=== PATIENT | female | born 1990 | race Two or more races ===

== ENCOUNTER 2017-06-10 15:03 | Outpatient (CLI) | payer MEDICAID ==
[2017-06-10 15:52] LABS: APPEARANCE,URINE SLIGHTLY-CLOUDY; BILIRUBIN,URINE NEGATIVE (NEGATIVE); GLUCOSE, URINE NEGATIVE (NEGATIVE); KETONES,URINE NEGATIVE (NEGATIVE); LEUKOCYTE ESTERASE,URINE NEGATIVE (NEGATIVE); NITRITE,URINE NEGATIVE (NEGATIVE); PROTEIN,URINE NEGATIVE (NEGATIVE); URINE SPECIFIC GRAVITY 1.011; UROBILINOGEN,URINE NEGATIVE mg/dL (<2.0)
[2017-06-10 16:16] LABS: URINE BARBITURATES SCREEN NEGATIVE; URINE METHADONE SCREEN NEGATIVE; URINE OPIATES LOW NEGATIVE; URINE PHENCYCLIDINE SCREEN NEGATIVE
== END 2017-06-10 16:13 | disposition home or self-care (01) ==
LOC: LC 15:03
PROVIDERS: ATTEND Specialist
DX: O47.1 False labor at or after 37 completed weeks of gestation (principal); Z3A.39 39 weeks gestation of pregnancy
CPT/HCPCS: 59025; 80307; 81005

== ENCOUNTER 2017-06-11 03:49 | Inpatient (IN) | payer MEDICAID ==
[2017-06-11 04:41] LABS: APPEARANCE,URINE SLIGHTLY-CLOUDY; BILIRUBIN,URINE NEGATIVE (NEGATIVE); GLUCOSE, URINE NEGATIVE (NEGATIVE); KETONES,URINE NEGATIVE (NEGATIVE); LEUKOCYTE ESTERASE,URINE TRACE (NEGATIVE); NITRITE,URINE NEGATIVE (NEGATIVE); PROTEIN,URINE NEGATIVE (NEGATIVE); URINE SPECIFIC GRAVITY 1.012; UROBILINOGEN,URINE NEGATIVE mg/dL (<2.0)
[2017-06-11 05:01] LABS: URINE BARBITURATES SCREEN NEGATIVE; URINE METHADONE SCREEN NEGATIVE; URINE OPIATES LOW NEGATIVE; URINE PHENCYCLIDINE SCREEN NEGATIVE
[2017-06-11] MEDS ORDERED: RINGERS SOLUTION,LACTATED 1,000 ML IV ONE (05:50)
[2017-06-11] MEDS ORDERED: RINGERS SOLUTION,LACTATED 1,000 ML IV PRN (05:50)
[2017-06-11] MEDS ORDERED: PENICILLIN G-K 5 MILLION UNIT VIAL ONE ×2 (05:55→10:54)
[2017-06-11] MEDS ORDERED: PENICILLIN G POTASSIUM 5,000,000 UNIT in DEXTROSE 5%-WATER 100 ML IV ONE (06:00)
[2017-06-11 06:23] LABS: ABSOLUTE EOSINOPHILS # (AUTO) 0.1 10^3/uL (0.0-0.6); ABSOLUTE LYMPHOCYTES (AUTO) 1.3 10^3/uL (0.5-4.7); ABSOLUTE MONOCYTES (AUTO) 0.6 10^3/uL (0.1-1.4); ABSOLUTE NEUT (AUTO) 8.6 10^3/uL (1.7-8.2); BASOPHILS % (AUTO) 0.3 % (0-2); EOSINOPHILS % (AUTO) 0.8 % (0-6); HEMATOCRIT 29.6 % (36.0-47.0); HEMOGLOBIN 9.4 g/dL (12.0-15.5); HGB HCT DIFFERENCE -1.4; LYMPHOCYTES % (AUTO) 12.6 % (13-45); MEAN CORPUSCULAR HEMOGLOBIN 28.5 pg (27.0-33.4); MEAN CORPUSCULAR HGB CONC 31.8 g/dL (32.0-36.0); MEAN CORPUSCULAR VOLUME 90 fl (80-97); MONOCYTES % (AUTO) 5.2 % (3-13); RED CELL DISTRIBUTION WIDTH 15.5 % (11.5-14.0); SEGMENTED NEUTROPHILS % (AUTO) 81.1 % (42-78); WHITE BLOOD COUNT 10.6 10^3/uL (4.0-10.5)
[2017-06-11] MEDS ORDERED: MISOPROSTOL 0.2 MG TABLET ONE (06:45)
[2017-06-11] MEDS ORDERED: OXYTOCIN/NORMAL SALINE 20 UNIT/1,000 ML RTUINJ ONE (06:45)
[2017-06-11] MEDS ORDERED: LIDOCAINE 1% INJ-PF (10 MG/ML) 30 ML SDV ONE (06:45)
[2017-06-11] MEDS ORDERED: PHENYLEPHRINE HCL INJ/PF 10 MG/1 ML SDV ONE (07:22)
[2017-06-11] MEDS ORDERED: EPHEDRINE SULFATE INJ 50 MG/1 ML AMPULE ONE (07:22)
[2017-06-11] MEDS ORDERED: FENTANYL CITRATE INJ/PF 100 MCG/2 ML AMPUL ONE (07:22)
[2017-06-11] MEDS ORDERED: FENTANYL/BUPIVACAINE/NS/PF 200 MCG/100 ML RTUINJ EPI ONE (07:23)
[2017-06-11] MEDS ORDERED: BUPIVACAINE HCL 0.25 % INJ/PF (2.5 MG/1 ML) 30 ML VIAL ONE (07:23)
--- NOTE | 2017-06-11 08:47 | L&D Progress Notes ---
PROGRESS NOTES Datetime Report Generated by CPN: 06/11/2017 08:47 PROGRESS NOTE Impression: Normal Progression of Labor Plan: Continue Present Management Vital Signs : Reviewed; Within Normal Limits Comment: Cat 1 , irregular uc's, comfortable with epidural, hsb at BS, anticipate SIGNATURE SIGNATURE: [id number] Assignment: Дмитрий Pascual DO Signature: with User ID: [email or web address] : with User ID: [email or web address]
[2017-06-11] MEDS ORDERED: PENICILLIN G POTASSIUM 2,500,000 UNIT in DEXTROSE 5%-WATER 50 ML IV SCH (10:00)
[2017-06-11] MEDS ORDERED: MISOPROSTOL 0.2 MG TABLET PR ONE (14:59)
[2017-06-11] MEDS ORDERED: GLYCERIN/WITCH HAZEL LEAF 1 EACH MED..PAD TP PRN (14:59)
[2017-06-11] MEDS ORDERED: MEASLES,MUMPS&RUBELLA VACC/PF 0.5 ML VIAL SUBCUT PRN (14:59)
[2017-06-11] MEDS ORDERED: DIBUCAINE 1% OINTMENT 28 GM TP PRN (14:59)
[2017-06-11] MEDS ORDERED: PROMETHAZINE HCL 25 MG SUPP.RECT PR PRN (14:59)
[2017-06-11] MEDS ORDERED: PROMETHAZINE HCL INJ 25 MG/1 ML VIAL IV PRN (14:59)
[2017-06-11] MEDS ORDERED: PSEUDOEPHEDRINE HCL 30 MG TABLET PO PRN (14:59)
[2017-06-11] MEDS ORDERED: NA PHOS,M-B/NA PHOS,DI-BA (ADULT) 133 ML ENEMA PR PRN (14:59)
[2017-06-11] MEDS ORDERED: DIPHENHYDRAMINE HCL 25 MG CAPSULE PO PRN (14:59)
[2017-06-11] MEDS ORDERED: PROMETHAZINE HCL 25 MG TABLET PO PRN (14:59)
[2017-06-11] MEDS ORDERED: MAGNESIUM HYDROXIDE SUSP 30 ML UDCUP PO PRN (14:59)
[2017-06-11] MEDS ORDERED: BENZOCAINE/MENTHOL AEROSOL SPRAY 56 ML TOP PRN (14:59)
[2017-06-11] MEDS ORDERED: DIPH/PERTUSS(ACELL)/TETANUS VAC/PF 0.5 ML SYR (>=10YO) IM PRN (14:59)
[2017-06-11] MEDS ORDERED: ACETAMINOPHEN WITH CODEINE #3 TABLET PO PRN (14:59)
[2017-06-11] MEDS ORDERED: OXYTOCIN/NORMAL SALINE 20 UNIT/1,000 ML RTUINJ IV PRN (14:59)
[2017-06-11] MEDS ORDERED: ACETAMINOPHEN 650 MG SUPP.RECT PR PRN (14:59)
--- NOTE | 2017-06-11 16:33 | Delivery Summary ---
Del Sum A-C Datetime Report Generated by CPN: 06/11/2017 16:32 DELIVERY PERSONNEL DELIVERY PERSONNEL: [id number] Delivery Doctor:: Cecile Carcamo CNM Nurse Show Operations Supervisor Certified:: Cecile Carcamo CNM Labor and Delivery Nurse:: Cee Dexter RNadult daycare coordinator Nurse:: JAVON Sharif Student Observers:: Linda Charles [facility] Speaker Wirer/COLLAR STAY FUSER TENDER: [place] ST Alf Speaker Wirer/COLLAR STAY FUSER TENDER: Gely Otto MATERNAL INFORMATION Delivery Anesthesia: Epidural Medications After Delivery: Pitocin Bolus-Please Comment; Pitocin Drip 20 Units/1000ml NSS; Cytotec 600mcg Per Rectum/Vagina Estimated Blood Loss (ml): 200 Maternal Complications: None Provider Comments: viable male from OA to [place]ATT over intact perineum. placed on mothers abdomen, cord clamped and cut after 2 minutes, apgars 8/10, spont delivery of grossly nl placenta, 3 VC, EBL 200 cc Baby and mom remain in recovery in stable condition, FFFM, cytotec 600 mcg via rectum, massage, IV Pitocin LABOR SUMMARY EDC: 06/15/2017 00:00 No. Babies in Womb: 1 Attempted: No Labor Anesthesia: Epidural LABOR INFORMATION Reason for Induction: Not Applicable Onset of Labor: 06/11/2017 05:40 Complete Dilatation: 06/11/2017 14:30 Oxytocin: N/A Group B Beta Strep: positive Antibiotics # of Doses: 2 Antibiotics Time of Last Dose: Name of Antibiotic Given: Penicillin Steroids Given: None Reason Steroids Not Administered: Not Applicable MEMBRANES Membranes Rupture Method: Artificial Rupture of Membranes: 06/11/2017 12:02 Length of Rupture (hr): 2.70 Amniotic Fluid Color: Clear Amniotic Fluid Amount: Small Amniotic Fluid Odor: Normal STAGES OF LABOR Stage 1 hr: 8 Stage 1 min: 50 Stage 2 hr: 0 Stage 2 min: 14 Stage 3 hr: 0 Stage 3 min: 5 Total Time in Labor hr: 9 Total Time in Labor min: 9 VAGINAL DELIVERY Episiotomy: None Laceration Extension: N/A Laceration Type: None Laceration Repair: Not Applicable Sponge Count Correct: N/A Sharps Count Correct: N/A CSECTION DELIVERY Primary Indication: N/A Secondary Indication: N/A CSection Incidence: N/A Labor: N/A Elective: N/A CSection Incision: N/A BABY A INFORMATION Delivery Date/Time: 06/11/2017 14:44 Method of Delivery: Vaginal Born in Route : No : N/A Forceps: N/A Vacuum Extraction: N/A Shoulder Dystocia : No PRESENTATION/POSITION BABY A Presentation: Cephalic Cephalic Presentation: Vertex Vertex Position: Right Occipital Anterior Breech Presentation: N/A PLACENTA INFORMATION BABY A Placenta Delivery Time : 06/11/2017 14:49 Placenta Method of Delivery: Spontaneous Placenta Status: Delivered SCORES BABY A Heart Rate 1 min: >100 bpm Resp Effort 1 min: Good Cry Reflex Irritability 1 min: Cough or Sneeze or Pulls Away Muscle Tone 1 min: Active Motion Color 1 min: Blue/Pale Resuscitation Effort 1 min: Tactile Stimulation SCORE 1 MIN: 8 Heart Rate 5 min: >100 bpm Resp Effort 5 min: Good Cry Reflex Irritability 5 min: Cough or Sneeze or Pulls Away Muscle Tone 5 min: Active Motion Color 5 min: Completely [place] Resuscitation Effort 5 min: N/A SCORE 5 MIN: 10 INFORMATION BABY A Gestational Age at Delivery: 39.3 Gestational Status: Full Term- 39- 40.6 Weeks Infant Outcome : Liveborn Condition : Stable Sex: Male IDENTIFICATION BABY A Verification Date/Time: 06/11/2017 14:55 ID Band Number: [id number] Mother's Name Verified: Yes RN Verifying Infant: Yoko Camp [facility] Additional Verifying Personnel: D [facility] WEIGHT/LENGTH BABY A Infant Birthweight (gm): 3210 Infant Weight (lb): 7 Weight (oz): 1 Infant Length (in): 19.00 Infant Length (cm): 48.26 CORD INFORMATION BABY A No. Cord Vessels: 3 Nuchal Cord : N/A Cord Blood Taken: Yes-For Storage (Mom's Blood type +) Suction: None ASSESSMENT BABY A Infant Complications: Multiple Variable Decels Physical Findings at Delivery: Puncture Wound from Scalp Electrode Respirations: Appears Normal Skin to Skin: Yes Concrete Paving Supervisor/ALS Called : No Care By: D Ivy [facility] Transferred To: Remains with Mother BABY B INFORMATION : N/A
--- NOTE | 2017-06-11 17:03 | Admission Physical ---
Datetime Report Generated by CPN: 06/11/2017 17:03 CURRENT ADMISSION Hx Assessment: The History has been Reviewed and is Current Chief Complaint: Uterine Contractions Admit Plan: Initiate Labor Protocol ALLERGIES Medication Allergies: No Medication Allergies: No Known Allergies (11/03/2012) Latex: No Latex Allergies OBSTETRICAL HISTORY EDC: 06/15/2017 00:00 : 3 Para: 2 Term: 2 : 0 SAB: 0 IAB: 0 Ectopic: 0 Livin Gestational Diabetes: No Rh Sensitization: No Incompetent Cervix: No LACEY: No Infertility: No ART Treatment: No Uterine Anomaly: No IUGR: No Hx Previous C/S: No Macrosomia: No Hx Loss/Stillborn: No PIH: No Hx : No Placenta Previa/Abruption: No Depression/PP Depression: No PTL/PROM: No Post Hemorrhage: No Current Procedures: Ultrasound Obstetrical History Comments: 2009 39 weeks 2010 41 weeks 2016 current SEE RECORDS Alcohol: No Marijuana : No Cocaine: No Other Illicit Drugs: No Cigarettes: Never Smoker. [id number] MEDICAL HISTORY Diabetes: No Blood Transfusion: No Pulmonary Disease (Asthma, TB): No Breast Disease: No Hypertension: No Glass Calibrator Surgery: No Heart Disease: No Hosp/Surgery: No Autoimmune Disorder: No Anesthetic Complications: No Kidney Disease: No Abnormal Pap Smear: No Neuro/Epilepsy: No Psychiatric Disorders: No Other Medical Diseases: No Hepatitis/Liver Disease: No Significant Family History: No Varicosities/Phlebitis: No Trauma/Violence : No Thyroid Dysfunction: No INFECTIOUS HISTORY Gonorrhea: No Genital Herpes: No Chlamydia: No Tuberculosis: No Syphilis: No HIV/AIDS Exposure: No Rash or Viral Illness: No HPV: No PHYSICAL EXAM General: Normal HEENT: Normal Neurologic: Normal Thyroid: Normal Heart: Normal Lungs: Normal Breast: Normal Back: Normal Abdomen: Normal Genitourinary Exam: Normal Extremities: Normal DTRs: Normal Pelvic Type: Adequate Physical Exam Comments: gbs + efw 7 pounds 5 oz on recent sono FETUS A EGA: 39.3 Monitoring: External US FHR Category: Category I Admit Comment: admit-gbs prophylaxis, supportive care PLANS FOR LABOR AND DELIVERY Labor and Delivery: None Pain Management: Epidural Feeding Preference: Formula Benefit of Breast Feed Discussed: Yes Circumcision: N/A INFORMED CONSENT Signature: with User ID: [email or web address]
[2017-06-11] MEDS: FERROUS SULFATE 325 MG TABLET PO SCH (17:36)
[2017-06-11] MEDS: DOCUSATE SODIUM 100 MG CAPSULE PO SCH (17:36)
[2017-06-11] MEDS: FAMOTIDINE 20 MG TABLET PO SCH (21:50)
[2017-06-11] MEDS: IBUPROFEN 800 MG TABLET PO SCH (21:50)
[2017-06-12] MEDS: ACETAMINOPHEN WITH CODEINE #3 TABLET PO PRN ×2 (01:55→23:12)
[2017-06-12] MEDS: IBUPROFEN 800 MG TABLET PO SCH ×3 (06:01→21:25)
[2017-06-12 07:43] LABS: HEMATOCRIT 32.4 % (36.0-47.0); HEMOGLOBIN 9.8 g/dL (12.0-15.5); MEAN CORPUSCULAR HEMOGLOBIN 26.6 pg (27.0-33.4); MEAN CORPUSCULAR HGB CONC 30.3 g/dL (32.0-36.0); MEAN CORPUSCULAR VOLUME 88 fl (80-97); RED CELL DISTRIBUTION WIDTH 15.9 % (11.5-14.0); WHITE BLOOD COUNT 15.3 10^3/uL (4.0-10.5)
[2017-06-12] MEDS: PRENATAL VITAMIN W-O CA NO5/FE FUMARATE/FA CAPSULE PO SCH (10:45)
[2017-06-12] MEDS: FAMOTIDINE 20 MG TABLET PO SCH ×2 (10:46→21:25)
[2017-06-12] MEDS: SENNOSIDES/DOCUSATE 8.6-50 MG 1 EACH TABLET PO SCH (10:46)
[2017-06-12] MEDS: FERROUS SULFATE 325 MG TABLET PO SCH ×2 (10:46→17:50)
[2017-06-12] MEDS: DOCUSATE SODIUM 100 MG CAPSULE PO SCH ×2 (10:46→17:50)
--- NOTE | 2017-06-12 13:07 | PDOC PROGRESS REPORT ---
Subjective-OB Subjective: Post Delivery Day: 1 26 year old. Denies any needs at this time, states lochia is stable, voiding without difficulty, pain well controlled. Physical Exam (OB) Vital Signs: Temp Pulse Resp BP Pulse Ox 97.8 F 86 16 95/64 L 100 06/12/17 07:42 06/12/17 07:42 06/12/17 07:42 06/12/17 07:42 06/12/17 07:42 Intake & Output 06/11/17 06/12/17 06/13/17 06:59 06:59 06:59 Intake Total 500 Balance 500 Weight 58.1 kg - PIH/Pre-Eclampsia DTR's: 2 + Clonus: Negative Headache: Absent Epigastric Pain: No Visual Changes: No - Lochia Lochia Amount: Scant < 10 ml Lochia Color: Rubra/Red - Abdomen Description: Tender, Soft Hernia Present: No Fundal Description: Firm, Midline Fundal Height: u/u - u/2 Objective-Diagnostic Laboratory: 06/12/17 07:27 06/12/17 07:27 WBC 15.3 H RBC 3.70 L Hgb 9.8 L Hct 32.4 L MCV 88 MCH 26.6 L MCHC 30.3 L RDW 15.9 H Plt Count 213 Assessment and Plan(PN) - Assessment and Plan (1) Anemia Qualifiers: Anemia type: unspecified type Qualified Code(s): D64.9 - Anemia, unspecified Is this a current diagnosis for this admission?: Yes Plan: ferrous sulfate (2) GBS (group B Streptococcus carrier), +RV culture, currently Is this a current diagnosis for this admission?: Yes Plan: n/a (3) Vaginal delivery Is this a current diagnosis for this admission?: Yes Plan: routine pp care - Time Spent with Patient Time with patient: Less than 15 minutes Critical Time spent with patient: Less than 15 minutes Medications reviewed and adjusted accordingly: Yes - Disposition Anticipated Discharge: Home Within: within 24 hours
[2017-06-13] MEDS: IBUPROFEN 800 MG TABLET PO SCH ×2 (06:35→14:36)
[2017-06-13 08:49] VITALS: BP 102/59
[2017-06-13] MEDS: DOCUSATE SODIUM 100 MG CAPSULE PO SCH (09:54)
[2017-06-13] MEDS: PRENATAL VITAMIN W-O CA NO5/FE FUMARATE/FA CAPSULE PO SCH (09:54)
[2017-06-13] MEDS: FAMOTIDINE 20 MG TABLET PO SCH (09:54)
[2017-06-13] MEDS: FERROUS SULFATE 325 MG TABLET PO SCH (09:55)
[2017-06-13] MEDS: SENNOSIDES/DOCUSATE 8.6-50 MG 1 EACH TABLET PO SCH (09:55)
--- NOTE | 2017-06-13 11:40 | PDOC PROGRESS REPORT ---
Subjective-OB Subjective: Post Delivery Day: 26 year old. Denies any needs at this time. Ready to go home. Physical Exam (OB) Vital Signs: Temp Pulse Resp BP Pulse Ox 98.1 F 90 20 102/59 L 99 06/13/17 08:06 06/13/17 08:06 06/13/17 08:06 06/13/17 07:49 06/13/17 08:06 Intake & Output 06/12/17 06/13/17 06/14/17 06:59 06:59 06:59 Intake Total 750 600 Balance 750 600 - PIH/Pre-Eclampsia DTR's: 2 + Clonus: Negative Headache: Absent Epigastric Pain: No Visual Changes: No - Lochia Lochia Amount: Scant < 10 ml Lochia Color: Rubra/Red - Abdomen Description: Tender, Soft Hernia Present: No Bowel Sounds: Normoactive Flatus Presence: Present Stool: Yes Fundal Description: Firm, Midline Fundal Height: u/u - u/2 Objective-Diagnostic Laboratory: 06/12/17 07:27 Assessment and Plan(PN) - Time Spent with Patient Medications reviewed and adjusted accordingly: Yes - Disposition Anticipated Discharge: Home
--- NOTE | 2017-06-13 11:46 | PDOC DISCHARGE SUMMARY ---
Final Diagnosis Discharge Date: 06/13/17 - Final Diagnosis (1) Anemia Is this a current diagnosis for this admission?: Yes (2) Former smoker Is this a current diagnosis for this admission?: Yes (3) GBS (group B Streptococcus carrier), +RV culture, currently Is this a current diagnosis for this admission?: Yes (4) Hx MRSA infection Is this a current diagnosis for this admission?: Yes (5) Vaginal delivery Is this a current diagnosis for this admission?: Yes Discharge Data - Discharge Medication Home Medications: Ferrous Sulfate [Feosol 325 mg Tablet] 325 mg PO BID #60 tablet 06/13/17 Gestational Age: 39.3 wks Reason(s) for Admission: Onset of Labor Procedures: Ultrasound Intrapartum Procedure(s): Spontaneous Vaginal Delivery - Data Baby 1 Male at 1 minute: 8 at 5 minutes: 10 Weight: 3.203 kg Home with Mother: Yes Complications: No - Diagnosis Test Laboratory: Temp Pulse Resp BP Pulse Ox 98.1 F 90 20 102/59 L 99 06/13/17 08:06 06/13/17 08:06 06/13/17 08:06 06/13/17 07:49 06/13/17 08:06 06/11/17 06/11/17 06/12/17 03:56 06:01 07:27 RBC 3.30 L 3.70 L Hgb 9.4 L 9.8 L Hct 29.6 L 32.4 L Urine Opiates Screen NEGATIVE - Discharge information/Instructions Discharge Activity: Activity As Tolerated, Balance Activity w/Rest, Pelvic Rest , Slowly Increase Activity, No tub bath Discharge Diet: Regular Disposition: HOME, SELF-CARE Follow up with: [facility] in: 4, Weeks
== END 2017-06-13 14:58 | disposition home or self-care (01) | DRG 775 ==
LOC: LC 03:49 → LR 05:56 → 2S 17:02
PROVIDERS: ADMIT Specialist; ATTEND Specialist
PROC: 10E0XZZ Delivery of Products of Conception, External Approach (ICD-10-PCS; principal; 2017-06-11)
PROC: 10907ZC Drainage of Amniotic Fluid, Therapeutic from Products of Conception, Via Natural or Artificial Opening (ICD-10-PCS; 2017-06-11)
PROC: 4A1HXCZ Monitoring of Products of Conception, Cardiac Rate, External Approach (ICD-10-PCS; 2017-06-11)
DX: O99.824 Streptococcus B carrier state complicating childbirth (principal); O99.02 Anemia complicating childbirth; D64.9 Anemia, unspecified; O76 Abnormality in fetal heart rate and rhythm complicating labor and delivery; Z86.14 Personal history of Methicillin resistant Staphylococcus aureus infection; Z3A.39 39 weeks gestation of pregnancy; Z87.891 Personal history of nicotine dependence
CPT/HCPCS: 36415; 80307; 81005; 85025; 85027; 86592; 86850; 86900; 86901; 94760; J2370; J2540; J2590; J3010; J3490

== ENCOUNTER 2017-08-21 15:57 | Emergency (ER) | payer MEDICAID ==
--- NOTE | 2017-08-21 16:45 | ER Document Report ---
ED General - General Chief Complaint: Pelvic Pain Stated Complaint: PELVIC PAIN Time Seen by Provider: 08/21/17 16:44 Mode of Arrival: Ambulatory Information source: Patient Notes: 26 yr old female presents with complaints of vaginal bleeding 2 months after delivery with cramping. Pt denies any fevers or chills, nausea vomiting or diarrhea. pt denies any concerns for std vaginal delivery with no complications TRAVEL OUTSIDE OF THE [place] IN LAST 30 DAYS: No - HPI Onset: Other - 2 days Onset/Duration: Persistent Quality of pain: Cramping Severity: Mild Pain Level: 1 Associated symptoms: Other Exacerbated by: Denies Relieved by: Denies Similar symptoms previously: No Recently seen / treated by doctor: No - Related Data Allergies/Adverse Reactions: No Known Allergies Allergy (Verified 11/03/12 16:28) Past Medical History - Social History Smoking Status: Never Smoker Cigarette use (# per day): No Chew tobacco use (# tins/day): No Smoking Education Provided: No Frequency of alcohol use: None Drug Abuse: None Family History: Reviewed & Not Pertinent Patient has suicidal ideation: No Patient has homicidal ideation: No Pulmonary Medical History: Reports: Hx Asthma Renal/ Medical History: Denies: Hx Peritoneal Dialysis - Immunizations Immunizations up to date: Yes Hx Diphtheria, Pertussis, Tetanus Vaccination: Yes - 07/05/11 vaccinated Review of Systems - Review of Systems Notes: REVIEW OF SYSTEMS: CONSTITUTIONAL : Denies fever, chills, or sweats. Denies recent illness. EENT: Denies eye, ear, throat, or mouth pain or symptoms. Denies nasal or sinus congestion or discharge. Denies throat, tongue, or mouth swelling or difficulty swallowing. CARDIOVASCULAR: Denies chest pain. Denies palpitations or racing or irregular heart beat. Denies ankle edema. RESPIRATORY: Denies cough, cold, or chest congestion. Denies shortness of breath, difficulty breathing, or wheezing. GASTROINTESTINAL: Denies abdominal pain or distention. Denies nausea, vomiting , or diarrhea. Denies blood in vomitus, stools, or per rectum. Denies black, tarry stools. Denies constipation. GENITOURINARY: Denies difficulty urinating, painful urination, burning, frequency, blood in urine, or discharge. FEMALE GENITOURINARY:admits to vaginal bleeding MUSCULOSKELETAL: Denies back or neck pain or stiffness. Denies joint pain or swelling. SKIN: Denies rash, lesions or sores. HEMATOLOGIC : Denies easy bruising or bleeding. LYMPHATIC: Denies swollen, enlarged glands. NEUROLOGICAL: Denies confusion or altered mental status. Denies passing out or loss of consciousness. Denies dizziness or lightheadedness. Denies headache. Denies weakness or paralysis or loss of use of either side. Denies problems with gait or speech. Denies sensory loss, numbness, or tingling. Denies seizures. PSYCHIATRIC: Denies anxiety or stress. Denies depression, suicidal ideation, or homicidal ideation. ALL OTHER SYSTEMS REVIEWED AND NEGATIVE. PHYSICAL EXAMINATION: GENERAL: Well-appearing, well-nourished and in no acute distress. HEAD: Atraumatic, normocephalic. EYES: Pupils equal round and reactive to light, extraocular movements intact, conjunctiva are normal. ENT: Nares patent, oropharynx clear without exudates. Moist mucous membranes. NECK: Normal range of motion, supple without lymphadenopathy LUNGS: Breath sounds clear to auscultation bilaterally and equal. No wheezes rales or rhonchi. HEART: Regular rate and rhythm without murmurs ABDOMEN: Soft, nontender, nondistended abdomen. No guarding, no rebound. No masses appreciated. Female : small amount of bleeding noted, no tenderness on cervic palpation Musculoskeletal: Normal range of motion, no pitting or edema. No cyanosis. NEUROLOGICAL: Cranial nerves grossly intact. Normal speech, normal gait. Normal sensory, motor exams PSYCH: Normal mood, normal affect. SKIN: Warm, Dry, normal turgor, no rashes or lesions noted. Dictation was performed using [employer] voice recognition software Physical Exam - Vital signs Vitals: Temp Pulse Resp BP Pulse Ox 98.5 F 115 H 18 121/78 99 08/21/17 16:00 08/21/17 16:00 08/21/17 16:00 08/21/17 16:00 08/21/17 16:00 Course - Re-evaluation Re-evalutation: 08/21/17 18:54 Patient is noted to have large amount of bacteria with wbc concerning for std vs bacterial vaginosis. will treat for both awaiting results 08/21/17 19:46 Patient was given prescription for bacterial vaginosis, she was treated for gonorrhea and chlamydia, this test did come back negative. I did call but no response on phone No signs of PID, patient afebrile no coronary Chlamydia noted patient had no tenderness on palpation of her cervix After performing a Medical Screening Examination, I estimate there is LOW risk for ACUTE APPENDICITIS, BOWEL OBSTRUCTION, ACUTE CHOLECYSTITIS, PERFORATED DIVERTICULITIS, INCARCERATED HERNIA, PANCREATITIS, PELVIC INFLAMMATORY DISEASE, PERFORATED ULCER, ECTOPIC , or TUBO-OVARIAN ABSCESS, thus I consider the discharge disposition reasonable. Also, there is no evidence or peritonitis , sepsis, or toxicity. I have reevaluated this patient multiple times and no significant life threatening changes are noted. The patient and I have discussed the diagnosis and risks, and we agree with discharging home with close follow-up with the understanding that symptoms and presentations can change. We also discussed returning to the Emergency Department immediately if new or worsening symptoms occur. We have discussed the symptoms which are most concerning (e.g., bloody stool, fever, changing or worsening pain, vomiting) that necessitate immediate return. - Vital Signs Vital signs: Temp Pulse Resp BP Pulse Ox 99.2 F 108 H 15 121/75 99 08/21/17 18:24 08/21/17 18:24 08/21/17 18:24 08/21/17 18:24 08/21/17 18:24 Discharge - Discharge Clinical Impression: Pelvic pain, Bacterial vaginosis Condition: Stable Disposition: HOME, SELF-CARE Instructions: Vaginosis, Bacterial ([facility]) Prescriptions: Metronidazole [Flagyl 500 mg Tablet] 500 mg PO Q6H #40 tablet Referrals: [facility] [Provider Group] - Follow up tomorrow
[2017-08-21] MEDS ORDERED: LIDOCAINE 1% INJ-PF (10 MG/ML) 30 ML SDV INFIL ONE (18:07)
[2017-08-21] MEDS ORDERED: CEFTRIAXONE INJ 250 MG VIAL IM ONE (18:07)
[2017-08-21] MEDS ORDERED: AZITHROMYCIN 250 MG TABLET PO ONE (18:07)
[2017-08-21 18:27] VITALS: BP 121/75
[2017-08-21 18:56] LABS: CHLAM PCR NOT DETECTED (NOT DETECT)
== END 2017-08-21 18:54 | disposition home or self-care (01) ==
LOC: ER 15:57
DX: N76.0 Acute vaginitis (principal); B96.89 Other specified bacterial agents as the cause of diseases classified elsewhere; R10.2 Pelvic and perineal pain; N93.9 Abnormal uterine and vaginal bleeding, unspecified
CPT/HCPCS: 99284; 96372; 87210; 87491; 87591; Q0144; J3490; J0696

== ENCOUNTER 2017-12-16 17:57 | Emergency (ER) | payer MEDICAID ==
--- NOTE | 2017-12-16 20:32 | ER Document Report ---
ED Medical Screen (RME) - General Chief Complaint: OB Problem (<20wks) Stated Complaint: ISSUE Time Seen by Provider: 12/16/17 20:31 Notes: Patient denies any pain or problems. She states that she had an on November 042017. She states that a friend advised her that sometimes the pill does not work so she should take a test. She states she has taken several tests and they have been positive. Therefore she comes to the emergency department to see if she can have a test. She denies any pain. She denies any vaginal bleeding. She denies any other symptoms. TRAVEL OUTSIDE OF THE [place] IN LAST 30 DAYS: No - Related Data Allergies/Adverse Reactions: No Known Allergies Allergy (Verified 12/16/17 18:07) Past Medical History - Social History Chew tobacco use (# tins/day): No Frequency of alcohol use: None Drug Abuse: None Pulmonary Medical History: Reports: Hx Asthma Renal/ Medical History: Denies: Hx Peritoneal Dialysis - Immunizations Immunizations up to date: Yes Hx Diphtheria, Pertussis, Tetanus Vaccination: Yes - 07/05/11 vaccinated Physical Exam - Vital signs Vitals: Temp Pulse Resp BP Pulse Ox 98.5 F 97 16 119/74 100 12/16/17 18:21 12/16/17 18:21 12/16/17 18:21 12/16/17 18:21 12/16/17 18:21 Course - Vital Signs Vital signs: Temp Pulse Resp BP Pulse Ox 98.5 F 97 16 119/74 100 12/16/17 18:21 12/16/17 18:21 12/16/17 18:21 12/16/17 18:21 12/16/17 18:21
[2017-12-16 21:18] LABS: AMORPHOUS SEDIMENT,URINE TRACE /HPF; APPEARANCE,URINE CLOUDY; BILIRUBIN,URINE NEGATIVE (NEGATIVE); CALCIUM OXALATE CRYSTALS,URINE RARE /HPF; COLOR,URINE YELLOW; GLUCOSE, URINE NEGATIVE (NEGATIVE); KETONES,URINE NEGATIVE (NEGATIVE); LEUKOCYTE ESTERASE,URINE NEGATIVE (NEGATIVE); NITRITE,URINE NEGATIVE (NEGATIVE); PROTEIN,URINE NEGATIVE (NEGATIVE); URINE SPECIFIC GRAVITY 1.025; UROBILINOGEN,URINE NEGATIVE mg/dL (<2.0)
--- NOTE | 2017-12-16 22:47 | ER Document Report ---
ED General - General Chief Complaint: OB Problem (<20wks) Stated Complaint: ISSUE Time Seen by Provider: 12/16/17 20:31 Notes: Patient is a 27-year-old female who presents with concerns of a positive test at home. Patient states that in early October she had a medically induced at a [facility]. She did not follow-up as scheduled. She reports that she was told by a friend that sometimes these medically induced abortions are not successful and subsequently took a test. When returned positive she came to the emergency department for further assessment and to confirm that she is indeed still . She denies any symptoms whatsoever. She denies any abdominal pain, vaginal bleeding , vaginal discharge, fever or constitutional symptoms. She has not contacted the [facility] regarding these concerns. She admits to ongoing unprotected sexual intercourse. TRAVEL OUTSIDE OF THE [place] IN LAST 30 DAYS: No - Related Data Allergies/Adverse Reactions: No Known Allergies Allergy (Verified 12/16/17 18:07) Past Medical History - General Information source: Patient - Social History Smoking Status: Current Every Day Smoker Chew tobacco use (# tins/day): No Frequency of alcohol use: None Drug Abuse: None Lives with: Spouse/Significant other Family History: Reviewed & Not Pertinent Patient has suicidal ideation: No Patient has homicidal ideation: No Pulmonary Medical History: Reports: Hx Asthma Renal/ Medical History: Denies: Hx Peritoneal Dialysis - Immunizations Immunizations up to date: Yes Hx Diphtheria, Pertussis, Tetanus Vaccination: Yes - 07/05/11 vaccinated Review of Systems - Review of Systems Notes: Constitutional: Negative for fever. HENT: Negative for sore throat. Eyes: Negative for visual changes. Cardiovascular: Negative for chest pain. Respiratory: Negative for shortness of breath. Gastrointestinal: Negative for abdominal pain, vomiting or diarrhea. Genitourinary: Negative for dysuria. Musculoskeletal: Negative for back pain. Skin: Negative for rash. Neurological: Negative for headaches, weakness or numbness. 10 point ROS negative except as marked above and in HPI. Physical Exam - Vital signs Vitals: Temp Pulse Resp BP Pulse Ox 98.5 F 97 16 119/74 100 12/16/17 18:21 12/16/17 18:21 12/16/17 18:21 12/16/17 18:21 12/16/17 18:21 Interpretation: Normal Notes: PHYSICAL EXAMINATION: GENERAL: Well-appearing, well-nourished and in no acute distress. HEAD: Atraumatic, normocephalic. EYES: Pupils equal round and reactive to light, extraocular movements intact, sclera anicteric, conjunctiva are normal. ENT: nares patent, oropharynx clear without exudates. Moist mucous membranes. NECK: Normal range of motion, supple without lymphadenopathy LUNGS: Breath sounds clear to auscultation bilaterally and equal. No wheezes rales or rhonchi. HEART: Regular rate and rhythm without murmurs ABDOMEN: Soft, nontender, normoactive bowel sounds. No guarding, no rebound. No masses appreciated. EXTREMITIES: Normal range of motion, no pitting or edema. No cyanosis. NEUROLOGICAL: No focal neurological deficits. Moves all extremities spontaneously and on command. PSYCH: Normal mood, normal affect. SKIN: Warm, Dry, normal turgor, no rashes or lesions noted. Course - Re-evaluation Re-evalutation: 12/17/17 04:51 Patient is a well-appearing 27-year-old female with no acute concerns other than a positive test after having a medically induced . She has no abdominal tenderness on examination. No vaginal bleeding or discharge. No dysuria. She denies any complaints other than being concerned about a positive test. She does admit to ongoing unprotected sexual intercourse after having her medically induced and is uncertain whether or not it could be a new . Her test continues to be positive here. I do not see an emergent medical indication for serum hCG levels or formal ultrasound testing. A bedside ultrasound does not show any evidence of an intrauterine . I have instructed the patient that there is no emergent indication for aggressive testing or imaging at this time but that she does need to follow-up as originally instructed with the [facility] to determine if there is any need for ongoing evaluation after her medically induced . I also again informed her that this could be a new as she has continued to have unprotected sexual intercourse. We again reviewed the mechanism of and I have encouraged her to use contraceptives if she is not desiring a . At this time will discharge with return precautions and follow-up recommendations. Verbal discharge instructions given a the bedside and opportunity for questions given. Medication warnings reviewed. Patient is in agreement with this plan and has verbalized understanding of return precautions and the need for primary care follow-up in the next 24-72 hours. - Vital Signs Vital signs: Temp Pulse Resp BP Pulse Ox 98.5 F 92 16 117/72 98 12/16/17 22:52 12/16/17 22:52 12/16/17 22:52 12/16/17 22:52 12/16/17 22:52 - Laboratory Laboratory results interpreted by me: 12/16/17 20:42 Urine HCG, Qual POSITIVE H Discharge - Discharge Clinical Impression: Positive test, Medically induced Condition: Good Disposition: HOME, SELF-CARE Additional Instructions: You need to follow-up with the clinic where you had your medically induced completed as your test is still positive. On a bedside ultrasound we cannot see any visible intrauterine . However this does not definitively exclude any retained products of conception that could be causing your hormone levels to remain high. You need to follow-up as originally planned. Return if you begin to have abdominal pain, vaginal bleeding, fever, vaginal discharge, or any other symptoms that are worrisome to you. Referrals: JESI ESQUIVEL MD [Primary Care Provider] - Follow up as needed
[2017-12-16 22:53] VITALS: BP 117/72
== END 2017-12-16 22:53 | disposition home or self-care (01) ==
LOC: ER 17:57
DX: Z32.01 Encounter for pregnancy test, result positive (principal); J45.909 Unspecified asthma, uncomplicated; F17.200 Nicotine dependence, unspecified, uncomplicated
CPT/HCPCS: 81001; 81025; 99283

== ENCOUNTER 2017-12-20 00:31 | Emergency (ER) | payer MEDICAID ==
--- NOTE | 2017-12-20 02:18 | ER Document Report ---
HPI - HPI Patient complains to provider of: Dysuria Pain Level: 2 Context: Patient is a 27-year-old female that comes emergency department for chief complaint of 3 days of discomfort with urination. She denies abdominal pain, flank pain, nausea, vomiting, fever, chills, vaginal discharge or bleeding. She states she thinks she is , she had a medically induced about 1 month ago, had a positive test at home and here not long ago. She is sexually active with her boyfriend. She does not use contraceptive. - REPRODUCTIVE Reproductive: DENIES: : Past Medical History - General Information source: Patient - Social History Smoking Status: Never Smoker Frequency of alcohol use: None Drug Abuse: None Lives with: Family Family History: Reviewed & Not Pertinent Pulmonary Medical History: Reports: Hx Asthma Renal/ Medical History: Denies: Hx Peritoneal Dialysis Surgical Hx: Negative - Immunizations Immunizations up to date: Yes Hx Diphtheria, Pertussis, Tetanus Vaccination: Yes - 07/05/11 vaccinated Vertical Provider Document - CONSTITUTIONAL General Appearance: WD/WN, No Apparent Distress - INFECTION CONTROL TRAVEL OUTSIDE OF THE [place] IN LAST 30 DAYS: No - HEENT HEENT: Atraumatic, Normocephalic - NECK Neck: Normal Inspection - RESPIRATORY Respiratory: Breath Sounds Normal, No Respiratory Distress - CARDIOVASCULAR Cardiovascular: Regular Rate, Regular Rhythm - GI/ABDOMEN Gastrointestinal: Abdomen Soft, Abdomen Non-Tender - BACK Back: Normal Inspection - NEURO Level of Consciousness: Awake, Alert, Appropriate - DERM Integumentary: Warm, Dry, No Rash Course - Re-evaluation Re-evalutation: Well-appearing patient, unremarkable vital signs, soft abdomen, no CVA tenderness, no fever. UTI does suggest urethritis with patient's dysuria, patient's test is negative. Patient will be treated for UTI, patient is very happy about negative , discussed follow-up and return precautions. Patient states understanding and agreement. Discharge - Discharge Clinical Impression: Dysuria Condition: Stable Disposition: HOME, SELF-CARE Additional Instructions: Your workup shows a urinary tract infection, your test is negative. Use contraceptive if you do not want to get . Take Keflex antibiotics as prescribed. Follow-up with primary care. Return for any concerning symptoms including vomiting, fever, or any other concerning or worsening symptoms. Prescriptions: Cephalexin Monohydrate [Keflex 500 mg Capsule] 500 mg PO BID #10 capsule Forms: Return to Work
[2017-12-20 03:33] LABS: APPEARANCE,URINE SLIGHTLY-CLOUDY; BILIRUBIN,URINE NEGATIVE (NEGATIVE); COLOR,URINE YELLOW; GLUCOSE, URINE NEGATIVE (NEGATIVE); KETONES,URINE NEGATIVE (NEGATIVE); LEUKOCYTE ESTERASE,URINE SMALL (NEGATIVE); NITRITE,URINE NEGATIVE (NEGATIVE); PROTEIN,URINE NEGATIVE (NEGATIVE); URINE SPECIFIC GRAVITY 1.029; UROBILINOGEN,URINE NEGATIVE mg/dL (<2.0)
[2017-12-20] MEDS ORDERED: CEPHALEXIN 500 MG CAPSULE PO ONE (03:50)
[2017-12-20 04:36] VITALS: BP 119/71
== END 2017-12-20 04:38 | disposition home or self-care (01) ==
LOC: ER 00:31
DX: R30.0 Dysuria (principal); Z32.02 Encounter for pregnancy test, result negative
CPT/HCPCS: 81001; 81025; 99283

== ENCOUNTER 2018-07-21 21:54 | Emergency (ER) | payer MEDICAID ==
[2018-07-22 00:25] LABS: APPEARANCE,URINE SLIGHTLY-CLOUDY; BILIRUBIN,URINE NEGATIVE (NEGATIVE); COLOR,URINE YELLOW; GLUCOSE, URINE NEGATIVE (NEGATIVE); KETONES,URINE TRACE mg/dL (NEGATIVE); LEUKOCYTE ESTERASE,URINE MODERATE (NEGATIVE); NITRITE,URINE NEGATIVE (NEGATIVE); PROTEIN,URINE NEGATIVE (NEGATIVE); URINE SPECIFIC GRAVITY 1.032
--- NOTE | 2018-07-22 00:38 | ER Document Report ---
HPI - HPI Patient complains to provider of: Dysuria Pain Level: 1 Context: Patient is a 27-year-old female complaining of dysuria. Patient states dysuria started this morning. Patient denies any urinary frequency or urinary urgency. Patient also denies any vaginal discharge or pelvic pain. Patient denies vomiting, diarrhea, fever, abdominal pain. States she has a history of urinary tract infection and this feels the same as before. Past medical history: Urinary tract infection medications: None Allergies: None - URINARY Urinary: REPORTS: Urgency, Frequency - REPRODUCTIVE Reproductive: DENIES: : Past Medical History - General Information source: Patient - Social History Smoking Status: Unknown if Ever Smoked Lives with: Family Family History: Reviewed & Not Pertinent Patient has suicidal ideation: No Patient has homicidal ideation: No Pulmonary Medical History: Reports: Hx Asthma Renal/ Medical History: Denies: Hx Peritoneal Dialysis - Immunizations Immunizations up to date: Yes Hx Diphtheria, Pertussis, Tetanus Vaccination: Yes - 07/05/11 vaccinated Vertical Provider Document - CONSTITUTIONAL Agree With Documented VS: Yes Notes: GENERAL: Alert, interacts well. No acute distress. HEAD: Normocephalic, atraumatic. EYES: Pupils equal, round, and reactive to light. Extraocular movements intact. ENT: Oral mucosa moist, tongue midline. NECK: Full range of motion. Supple. Trachea midline. LUNGS: Clear to auscultation bilaterally, no wheezes, rales, or rhonchi. No respiratory distress. HEART: Regular rate and rhythm. No murmur ABDOMEN: Soft, non-tender. Non-distended. Bowel sounds present in all 4 quadrants. No CVA tenderness bilaterally. EXTREMITIES: Moves all 4 extremities spontaneously. No edema, normal radial and dorsalis pedis pulses bilaterally. No cyanosis. BACK: no cervical, thoracic, lumbar midline tenderness. No saddle anesthesia, normal distal neurovascular exam. NEUROLOGICAL: Alert and oriented x3. Normal speech. cranial nerves II through XII grossly intact PSYCH: Normal affect, normal mood. SKIN: Warm, dry, normal turgor. No rashes or lesions noted. - INFECTION CONTROL TRAVEL OUTSIDE OF THE [place] IN LAST 30 DAYS: No Course - Re-evaluation Re-evalutation: 07/22/18 00:36 Discussed with patient urine results. We will treat for urinary tract infection. Discussed sexually transmitted disease testing patient states she will follow up with primary care for same. Patient denies vaginal discharge or itching at this time. - Vital Signs Vital signs: Temp Pulse Resp BP Pulse Ox 98.7 F 86 18 116/67 100 07/21/18 22:07 07/21/18 22:07 07/21/18 22:07 07/21/18 22:07 07/21/18 22:07 - Laboratory Laboratory results interpreted by me: 07/22/18 00:03 Urine Ketones TRACE H Urine Urobilinogen 2.0 H Ur Leukocyte Esterase MODERATE H Urine Ascorbic Acid 40 H Discharge - Discharge Clinical Impression: Urinary tract infection Qualifiers: Urinary tract infection type: acute cystitis Hematuria presence: without hematuria Qualified Code(s): N30.00 - Acute cystitis without hematuria Condition: Stable Disposition: HOME, SELF-CARE Instructions: Cephalexin ([facility]), Urinary Tract Infection ([facility]) Prescriptions: Cephalexin Monohydrate [Keflex 500 mg Capsule] 500 mg PO BID 7 Days #14 capsule
[2018-07-22 00:46] VITALS: BP 111/63
== END 2018-07-22 00:47 | disposition home or self-care (01) ==
LOC: ER 21:54
DX: N30.00 Acute cystitis without hematuria (principal)
CPT/HCPCS: 81001; 81025; 87086; 99283

== ENCOUNTER 2018-08-09 05:32 | Emergency (ER) | payer MEDICAID ==
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
[2018-08-09] MEDS ORDERED: MORPHINE SULFATE 10 MG/ML INJ IV ONE (06:28)
[2018-08-09] MEDS ORDERED: ONDANSETRON HCL INJ/PF 4 MG/2 ML SDV IV ONE (06:28)
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
[2018-08-09 06:55] LABS: ABSOLUTE BASOPHILS # (AUTO) 0.1 10^3/uL (0.0-0.2); ABSOLUTE LYMPHOCYTES (AUTO) 0.9 10^3/uL (0.5-4.7); ABSOLUTE MONOCYTES (AUTO) 0.5 10^3/uL (0.1-1.4); ABSOLUTE NEUT (AUTO) 8.4 10^3/uL (1.7-8.2); BASOPHILS % (AUTO) 0.7 % (0-2); EOSINOPHILS % (AUTO) 0.2 % (0-6); HEMATOCRIT 38.6 % (36.0-47.0); HEMOGLOBIN 12.8 g/dL (12.0-15.5); LYMPHOCYTES % (AUTO) 8.7 % (13-45); MEAN CORPUSCULAR HEMOGLOBIN 28.6 pg (27.0-33.4); MEAN CORPUSCULAR HGB CONC 33.1 g/dL (32.0-36.0); MEAN CORPUSCULAR VOLUME 86 fl (80-97); MONOCYTES % (AUTO) 4.9 % (3-13); PLATELET COUNT 247 10^3/uL (150-450); RED BLOOD COUNT 4.47 10^6/uL (3.72-5.28); RED CELL DISTRIBUTION WIDTH 15.3 % (11.5-14.0); SEGMENTED NEUTROPHILS % (AUTO) 85.5 % (42-78); TOTAL CELLS COUNTED % (AUTO) 100 %; WHITE BLOOD COUNT 9.9 10^3/uL (4.0-10.5)
[2018-08-09 07:15] LABS: ANION GAP 14 (5-19); BLOOD UREA NITROGEN 10 mg/dL (7-20); CALCIUM 9.4 mg/dL (8.4-10.2); CARBON DIOXIDE 23 mmol/L (22-30); CHLORIDE 106 mmol/L (98-107); GLUCOSE 83 mg/dL (75-110); POTASSIUM 4.3 mmol/L (3.6-5.0)
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
[2018-08-09 07:55] VITALS: BP 107/58
== END 2018-08-09 07:45 | disposition home or self-care (01) ==
LOC: ER 05:32
DX: S09.90XA Unspecified injury of head, initial encounter (principal); S00.93XA Contusion of unspecified part of head, initial encounter; R11.0 Nausea; M54.2 Cervicalgia; F17.200 Nicotine dependence, unspecified, uncomplicated; Y04.2XXA Assault by strike against or bumped into by another person, initial encounter; Y92.009 Unspecified place in unspecified non-institutional (private) residence as the place of occurrence of the external cause
CPT/HCPCS: 99284; 96374; 96375; 36415; 85025; 80048; 70450; 70486; 70491; J2270; J2405

== ENCOUNTER → 2019-07-21 | Outpatient (CLI) | payer MEDICAID ==
--- NOTE | 2019-07-21 23:51 | EKG REPORT ---
SEVERITY:- NORMAL ECG - SINUS RHYTHM : Confirmed by: Junie Madison MD 21-Jul-2019 23:51:01
== END ==
LOC: OD 12:34
PROVIDERS: ATTEND Nurse Practitioner Family
DX: Z01.818 Encounter for other preprocedural examination (principal)
CPT/HCPCS: 93005; 93010